=== PATIENT | male | born 1980 | race Caucasian/White ===

== ENCOUNTER 2018-01-29 17:22 | Emergency (ER) | payer SELFPAY ==
[~2018-01-29] VITALS: Ht 177.8 cm; Wt 83.7 kg
[~2018-01-29 17:22] MED LIST: NAPROXEN500 MG PO; VALIUM5 MG PO
[2018-01-29 18:40] LABS: HEMATOCRIT 40.3 % (38.0-50.0); HEMOGLOBIN 14.3 G/DL (12.5-16.6); MCH 31.8 PG (29.0-34.0); MCHC 35.5 G/DL (30.0-36.0); MCV 89.8 FL (86-99); PLATELET COUNT 221 K/uL (156-360); RBC DIS.WIDTH-CV 12.1 % (11.8-14.6); RBC DIS.WIDTH-SD 40.1 % (39-53); RED BLOOD COUNT 4.49 M/uL (4.00-5.50); WHITE BLOOD COUNT 5.7 K/uL (4.1-10.2)
[2018-01-29 18:52] LABS: CHLORIDE 107 mEq/L (99-109); SODIUM 141 mEq/L (136-147)
[2018-01-29 18:53] LABS: GLUCOSE 112 mg/dL (70-99)
[2018-01-29 18:57] LABS: GFR ESTIMATE (CALCULATED) > 59 mL/min/ (58.99-99999)
[2018-01-29 18:58] LABS: UREA NITROGEN (BUN) 13 mg/dL (9-23)
[2018-01-29 19:01] LABS: TROP-I INTERPRETATION NEGATIVE; TROPONIN-I < 0.01 ng/mL (0.0-0.30)
[2018-01-29 22:04] LABS: TROP-I INTERPRETATION NEGATIVE; TROPONIN-I < 0.01 ng/mL (0.0-0.30)
[2018-01-29 22:15] VITALS: BP 128/83
== END 2018-01-29 22:16 | disposition home or self-care (01) ==
LOC: EME 17:22
PROVIDERS: Physician Assistant
DX: R07.9 Chest pain, unspecified (principal); Z87.891 Personal history of nicotine dependence; Z85.820 Personal history of malignant melanoma of skin; Z82.49 Family history of ischemic heart disease and other diseases of the circulatory system
CPT/HCPCS: 71046; 80048; 84484; 85027; 93005; 99281; 99283